=== PATIENT | male | born 1950 | race Caucasian/White ===

== ENCOUNTER → 2018-02-08 14:27 | Outpatient (CLI) | payer MEDICARE, MEDICAID ==
[2018-03-11 09:26] VITALS: BMI 27.4
== END | disposition home or self-care (01) ==
LOC: D.CT 14:27
DX: I65.23 Occlusion and stenosis of bilateral carotid arteries (principal)

== ENCOUNTER → 2018-02-23 14:23 | Outpatient (CLI) | payer MEDICARE, MEDICAID ==
[2018-03-11 09:26] VITALS: BMI 27.4
== END | disposition home or self-care (01) ==
LOC: D.CT 14:23
DX: R97.20 Elevated prostate specific antigen [PSA] (principal)

== ENCOUNTER 2018-03-11 07:33 | Outpatient (CLI) | payer MEDICARE, MEDICAID ==
[~2018-03-11] VITALS: Ht 170.2 cm; Wt 79.5 kg
--- NOTE | ~2018-03-11 | HEMODYNAMI ---
PATIENT:GABBY CHANEY MEDICAL RECORD: [id number] : 48 LOCATION:[facility] ADMISSION DATE: 03/11/18 Generatedon:03/11/201810:43 Patient name: GABBY CHANEY Patient #: [id number] SSN: B: 1950 Date of study: 03/11/2018 Page: Of Hemodynamic Procedure Report Patient Data Patient Demographics Procedure consent was obtained First Name: GABBY Gender: Male Last Name: RITU : 1950 Patient #: [id number] Age: 67 year(s) Race: Unknown Additional ID: [id number] Contact details [address]: [address] [place] [address] State: [place] City: [place] Zip code: [address] Past Medical History Allergies: No known allergies Admission Admission Data Admission Date: 03/11/2018 Admission Time: 7:33 Height (in.): 5.7 BSA: 0.32 (m2) Height (cm.): 14.48 BMI: 3786.93 (kg/m2) Weight (lbs.): 175 Weight (kg.): 79.38 Lab Results Lab Result Date: 03/11/2018 Lab Result Time: 0:00 Biochemistry Name Units Result Min Max BUN mg/dl 10 --(-*--)-- 7 18 Creatinine mg/dl 0.8 --(-*--)-- 0.6 1.3 CBC Name Units Result Min Max Hemoglobin g/dl 15.4 --(-*--)-- 13.5 17.5 Procedure Procedure Types Cath Procedure Diagnostic Procedure LHC LHC w/Coronaries Sedation Charges Moderate Sedation up to 30 minutes Peripheral Cath Diagnostic Procedure Cath Peripheral Four Vessel Arteriogram Procedure Description Procedure Date Procedure Date: 03/11/2018 Procedure Start Time: 10:12 Procedure End Time: 10:40 Procedure Staff Name Function Jef Vigil MD Performing Physician Brianne Nichole RT Scrub Nancy Ambrocio RT Monitor Jessi Haddad RN Nurse Procedure Data Cath Procedure Fluoroscopy Diagnostic fluoroscopy Total fluoroscopy Time: 7.4 time: 7.4 min min Diagnostic fluoroscopy Total fluoroscopy dose: 953 dose: 953 mGy mGy Contrast Material Contrast Material Type Amount (ml) Isovue 300 114 Entry Location Entry Primary Successful Side Size Upsize Upsize Entry Closure Succes sful Closure Location (Fr) 1 (Fr) 2 (Fr) Remarks Device Remarks Femoral Right 5 Fr Exoseal artery Estimated blood loss: 5 ml Diagnostic catheters Device Type Used For End Catheter Placement MULTIPACK JL 4.0 5Fr Procedure catheter MULTIPACK 3DRC 5Fr Procedure catheter MULTIPACK Pigtail 5 Fr Procedure catheter Procedure Complications No complications Procedure Medications Medication Administration Route Dosage Oxygen etCO2 Nasal cannula 2 l/min Lidocaine 2% added to field 20 Heparin Flush Bag added to field 2 bags (1000units/500ml NS) 0.9% NaCl I.V. 100 ml/hr Versed I.V. 1 mg Fentanyl I.V. 50 mcg Hemodynamics Rest BSA: 0.32 (m2) HGB: 15.4 (g/dl) O2 Consumption: Estimated: 34.62 (ml/min) O2 Con sumption indexed: Estimated:108.19 (ml/min/m) Heart Rate: 49 (bpm) Pressure Samples Time Site Value (mmHg) Purpose Heart Use Rate(bpm) 10:34 LV 148/-16,12 EDP 63 10:35 AO 141/71(100) Pullback 59 10:35 LV 138/7,15 Pullback 59 Gradients Valve Time Site 1 Site 2 Mean SEP/DFP Peak To Heart Use (mmHg) (sec/min) Peak Rate (mmHg) (bpm) Aortic 10:35 LV AO 0 14 0 59 138/7,15 141/71(100) Calculations Valve P-P Mean Valve Index Valve Source Name Gradient Area Flow (cm2) Aortic 0 0 0 0 Snapshots Pre Cath Intra NCS Post Cath Vital Signs Time Heart Resp SPO2 etCO2 NIBP (mmHg) Rhythm Pain Sedation Rate (ipm) (%) (mmHg) Status Level (bpm) 9:58:22 58 34 99 32.2 165/85(128) NSR 0 (11) 10(A) , No pain 10:02:40 60 16 99 18 153/83(100) NSR 0 (11) 10(A) , No pain 10:06:52 63 20 98 33 171/100(130) NSR 0 (11) 10(A) , No pain 10:11:12 64 18 99 0 165/94(130) NSR 0 (11) 10(A) , No pain 10:15:32 66 12 100 36.7 171/93(138) NSR 0 (11) 10(A) , No pain 10:19:50 67 13 99 36.7 160/87(111) NSR 0 (11) 10(A) , No pain 10:24:08 68 12 100 38.2 163/91(136) NSR 0 (11) 10(A) , No pain 10:28:27 67 13 98 34.4 159/91(125) NSR 0 (11) 10(A) , No pain 10:32:44 63 14 99 37.5 158/89(122) NSR 0 (11) 10(A) , No pain 10:37:05 62 17 99 35.9 155/81(119) NSR 0 (11) 10(A) , No pain Medications Time Medication Route Dose Verified Delivered Reason Notes Effe ctiveness by by 9:57:13 Oxygen etCO2 2 Jef Buffie used for Nasal l/min Musa Haddad RN procedure cannula 9:57:24 Lidocaine 2% added 20ml Jef Jef used for to vial Musa Vigil MD procedure field ABAD 9:57:36 Heparin Flush added 2 Jef Jef used for Bag to bags Musa Vigil MD procedure (1000units/500ml field ABAD NS) 9:57:45 0.9% NaCl I.V. 100 Jef Buffie Per ml/hr Musa Haddad RN physician 10:10:13 Versed I.V. 1 mg Jef Buffie for Musa Haddad RN sedation 10:10:19 Fentanyl I.V. 50 Jef Buffie for mcg Musa Haddad RN sedation Procedure Log Time Note 9:44:56 Time tracking: Regular hours (M-F 7:00 - 5:00) 9:44:58 Jessi Haddad RN sent for patient. Start room use. 9:45:02 Plan of Care:Hemodynamics will remain stable., Cardiac rhythm will remain stable., Comfort level will be maintained., Respiratory function will remain adequate., Patient/ family verbilizes understanding of procedure., Procedure tolerated without complication., Recovers from procedure without complications.. 9:45:03 Signed procedure consent form obtained from patient. 9:45:12 H&P Date Dictated: 03/04/2018 Within 30 days and on chart., H&P Addendum completed by physician on day of procedure. (MUST COMPLETE FOR ALL OUTPATIENTS). 9:45:20 Patient allergic to No known allergies 9:45:30 Patient Height : 5.7 inches 9:45:33 Patient Weight : 175 lbs 9:49:41 Patient received from Pre/Post Procedure Room to CCL 2 Alert and oriented. Tansferred to table in Supine position. 9:49:42 Warm blankets applied, and michelle hugger turned on for patient comfort. 9:49:42 Correct patient and procedure confirmed by team. 9:49:44 ECG and BP/O2 sat monitors applied to patient. 9:57:13 Oxygen 2 l/min etCO2 Nasal cannula was administered by Jessi Haddad RN; used for procedure; 9:57:14 Vital chart was started 9:57:24 Lidocaine 2% 20ml vial added to field was administered by Jef Vigil MD; used for procedure; 9:57:36 Heparin Flush Bag (1000units/500ml NS) 2 bags added to field was administered by Jef Vigil MD; used for procedure; 9:57:39 Baseline sample Acquired. 9:57:44 Rhythm: sinus rhythm 9:57:45 0.9% NaCl 100 ml/hr I.V. was administered by Jessi Haddad RN; Per physician; 9:57:45 Full Disclosure recording started 10:02:51 Pre-procedure instructions explained to patient. 10:02:51 Pre-op teaching completed and patient verbalized understanding. 10:02:53 Family in patients room. 10:02:54 Patient NPO since Midnight. 10:02:56 Is the patient allergic to Iodine/contrast media? No. 10:03:03 Is patient on blood thinner?Yes 10:03:06 ACC The patient was administered the following blood thiners within the last 24 hours: ACCPlavix 10:03:09 Patient diabetic? No. 10:03:11 Previous problem with sedation/anesthesia? No ? 10:03:14 Snore? No 10:03:15 Sleep apnea? No 10:03:16 Deviated septum? No 10:03:18 Opens mouth fully? Yes 10:03:19 Sticks out tongue? Yes 10:03:21 Airway obstruction? No ? 10:03:24 Dentures? No ? 10:03:27 Pre procedure: right dorsailis pedis pulse 2+ Normal; easily identifiable; not easily obliterated 10:03:33 IV patent on arrival in left hand with 0.9% NaCl at O. 10:04:26 Lab Result : Creatinine 0.8 mg/dl 10:04:26 Lab Result : BUN 10 mg/dl 10:04:26 Lab Result : Hemoglobin 15.4 g/dl 10:04:31 Lab results completed and on chart. 10:04:35 Right groin area was prepped with chlora-prep and draped in sterile fashion 10:04:39 Alarms reviewed by R. N. 10:04:39 Sharps counted by scrub and verified by R.N. 10:04:43 Use device set Femoral Dx 10:04:44 ACIST Syringe (52743) opened to sterile field. 10:04:45 Bag Decanter (2002S) opened to sterile field. 10:04:46 ACIST Hand Control (49225) opened to sterile field. 10:04:46 ACIST Manifold (00939) opened to sterile field. 10:04:47 Tegaderm 4 x 4 (1626W) opened to sterile field. 10:04:51 Medline Cath Pack ([id number]) opened to sterile field. 10:04:52 DIAGNOSTIC WIRE .035 260cm J wire (332335) opened to sterile field. 10:04:53 DIAGNOSTIC Multipack 5Fr catheter set ([id number]) opened to sterile field. 10:04:56 MICROPUNCTURE 4FR Cook (N93017) opened to sterile field. 10:04:58 SHEATH Prelude 5Fr 0.035 ([id number]-8Y-75-035) opened to sterile field. 10:08:27 --------ALL STOP TIME OUT------ 10:08:28 Final Timeout: patient, procedure, and site verified with staff and physician. All members of the team are in agreement. 10:08:32 Right groin site verified by team. 10:08:36 Physical assessment completed. ASA score P 2 - A patient with mild systemic disease as per Jef Vigil MD. 10:08:39 Sedation plan: IV Moderate Sedation Medication:Versed, Fentanyl 10:10:13 Versed 1 mg I.V. was administered by Jessi Haddad RN; for sedation; 10:10:19 Fentanyl 50 mcg I.V. was administered by Jessi Haddad RN; for sedation; 10:11:36 Zero performed for pressure channel P1 10:11:58 Procedure started. 10:12:28 Local anesthetic to right femoral artery with Lidocaine 2% by Jef Vigil MD.INITIAL ACCESS ONLY 10:14:02 Access obtained with 4Fr micropunture. 10:14:10 A 5 Fr sheath was inserted into the Right Femoral artery 10:14:32 A MULTIPACK JL 4.0 5Fr catheter was advanced over the wire and used for Procedure. 10:17:12 LCA angiography performed. 10:17:32 Catheter exchanged over wire. 10:17:56 A MULTIPACK 3DRC 5Fr catheter was advanced over the wire and used for Procedure. 10:19:41 RCA angiography performed. 10:21:44 Left carotid angiography performed. 10:25:26 Right carotid angiography performed. 10:32:58 Catheter exchanged over wire. 10:33:44 A MULTIPACK Pigtail 5 Fr catheter was advanced over the wire and used for Procedure. 10:34:20 LV gram done using LONGO 10:34:25 Injector settings: Ml/sec: 12, Volume: 8, 10:34:59 LV hemodynamics recorded. 10:35:35 EF : 60 % 10:35:37 Catheter removed. 10:35:39 EXOSEAL 5Fr (EX500) opened to sterile field. 10:35:59 Sheath removed intact; hemostasis achieved with Exoseal to the Right Femoral artery. 10:36:37 Procedure ended.(Physican Out) 10:37:02 Fluoroscopy time 07.40 minutes. 10:37:09 Fluoroscopy dose: 953 mGy 10:37:09 Flurop Dose total: 953 10:37:26 Contrast amount:Isovue 300 114ml. 10:37:28 Sharps counted by scrub and verified by R.N. 10:37:32 Post-op/insertion site Right Femoral artery dressed using a 4 x 4 and Tegaderm. 10:37:45 Post right femoral artery:stable, soft, clean and dry 10:37:48 Post-procedure physical assessment completed. ASA score P 2 - A patient with mild systemic disease as per Jef Vigil MD. 10:37:58 Post procedure rhythm: sinus rhythm 10:38:01 Estimated blood loss: 5 ml 10:38:02 Post procedure instruction explained to patient.Patient verbalizes understanding. 10:38:04 Patient needs reinforcement of post procedure teaching. 10:38:37 Procedure type changed to Cath procedure, Diagnostic procedure, LHC, LHC w/Coronaries, Sedation Charges, Moderate Sedation up to 30 minutes, Peripheral Cath Diagnostic Procedure, Cath Peripheral, Four Vessel Arteriogram 10:39:59 Procedure and supply charges have been captured, reviewed, submitted and are correct. 10:40:02 Procedure Complication : No complications 10:40:05 Vital chart was stopped 10:40:05 See physician's report for complete and final results. 10:40:07 Report given to Pre/Post Procedure Room. 10:40:09 Patient transfered to Pre/Post Procedure Room with Bed. 10:40:10 Procedure ended. 10:40:10 Full Disclosure recording stopped 10:40:14 End room use (Document Last) Device Usage Item Name Manufacture Quantity Catalog Number Hospital Part Current M inimal Lot# / Charge Number Stock Stock Serial# Code ACIST Syringe Acist 1 26267 [id number] 860962 782718 2 0 (90424) [employer] Bag Decanter Microtek 1 2001S 407809 34872 712233 5 (2001S) Medical Inc. ACIST Hand Acist 1 91549 131767 721716 379473 5 Control (58563) [employer] Inc ACIST Manifold Acist 1 22738 571676 003823 227077 5 (45177) Medical Systems Inc Tegaderm 4 x 4 3M 1 1626W 134934 018171 259022 5 (1626W) Medline Cath Cardinal 1 [id number] 626906 89968 687207 5 Pack Health ([id number]) DIAGNOSTIC WIRE [facility] 1 838069 230359 389332 562758 3 0 .035 260cm J wire (614551) DIAGNOSTIC Cardinal 1 IV2486 658067 43342 729317 3 0 Multipack 5Fr Health catheter set ([id number]) MICROPUNCTURE Omnisio Medical 1 D27695 329741 687666 763290 5 4FR Omnisio ([id number]) SHEATH Prelude Merit 1 [id number]-2B-27-035 878442 724824 565177 5 5Fr 0.035 Medical ([id number]) MULTIPACK JL Cardinal 1 [id number] 5 4.0 5Fr Health catheter MULTIPACK 3DRC Cardinal 1 677048 5 5Fr catheter Health MULTIPACK Cardinal 1 386515 5 Pigtail 5 Fr Health catheter EXOSEAL 5Fr Cardinal 1 EX500 878851 111129 404552 1 0 (EX500) Health Signature Audit [place] Stage Time Signature Unsigned Intra-Procedure 03/11/2018 Nancy Ambrocio 10:43:11 AM RT(R) Signatures Monitor : Nancy Ambrocio Signature : RT Date : Time : [address] [address]
--- NOTE | ~2018-03-11 | OP ---
PATIENT NAME: GABBY CHANEY MEDICAL RECORD: [id number] :48 LOCATION:D.[facility] ADMISSION DATE: SURGEON: JEF RUIZ MD DATE OF OPERATION: 03/11/2018 PROCEDURE: Left heart catheterization, 4-vessel angiography. WAFER FABRICATION TECHNICIAN: Jef Ruiz MD DESCRIPTION OF PROCEDURE: The patient was brought in cardiac catheterization lab in stable condition. Both groins were sterilely prepped and draped. The patient had a 5-Guamanian sheath placed in the right common femoral artery in a retrograde fashion using modified Seldinger technique. We then utilized 5-Guamanian diagnostic catheters to selectively intubate the left main coronary artery, the right coronary artery, the left ventricular cavity, the innominate artery, the right subclavian vessel, the right common carotid artery, the left common carotid artery, and the left subclavian artery, angiography was performed in multiple projections. FINDINGS: 1. Left main has mild plaquing. 2. The LAD is a smallish caliber vessel with diffuse atherosclerotic changes. No significant hemodynamic stenoses. 3. The circumflex is a nondominant vessel giving rise to terminal obtuse marginal branch, which shows mild atherosclerotic changes, 40% stenosis in the ostial segment. 4. The RCA is shown to be a dominant vessel in distribution, has mild diffuse calcific changes with a 40% to 50% mid stenosis. 5. The left common carotid artery is normal. 6. The left internal carotid artery is 100% occluded. 7. The left external iliac artery is normal. 8. The left subclavian has a 40% ostial stenosis. 9. The left vertebral has antegrade flow without significant stenosis. 10. The intracerebral portion was shown to have crossover left to right in the anterior distribution via the left vertebral artery. 11. The right subclavian vessel is tortuous with no hemodynamically significant stenosis. 12. The right vertebral artery is patent with antegrade flow. 13. The right common carotid artery is widely patent as well as the right external and right internal carotid artery. 14. The patient had extensive crossover from the anterior distribution from the right common carotid artery and the lateral projection was shown to have good convergence flow, good anterior cerebral artery and middle cerebral artery flow bilaterally from the right common carotid artery. HEMODYNAMICS: Left ventricular ejection fraction is 60%. End-diastolic pressure is normal. There is no significant mitral regurgitation. There is no gradient across the aortic valve. IMPRESSION: 1. Mild coronary artery disease. 2. Preserved LV systolic function. 3. Severe stenosis of the left internal carotid artery with collateralization via multiple sources into the anterior circulation. OPERATIVE REPORT [id number] GABBY CHANEY TRANSINT:[id number] Voice Confirmation ID: [id number] DOCUMENT ID: [id number] JEF RUIZ MD at 1011 CC: [id number] DICTATION DATE: 03/11/18 1043 HISTORIOGRAPHY PROFESSOR: 03/11/18 1103 DEP CLI 03/11/18 [facility] [address] [place] [address]
[2018-03-11 09:26] VITALS: BP 120/81; Ht 170.2 cm; Wt 79.5 kg
[2018-03-11 09:43] LABS: CHOL - HDL RATIO 3.9 ratio (2.3-4.9); LDL-HDL RATIO 2.5 ratio (1.5-3.5)
[2018-03-11 09:46] LABS: CALC OSMOLALITY 277 mosm/kg (275-300); CALCIUM 9.3 mg/dL (8.5-10.1); CARBON DIOXIDE 29.3 mmol/L (21.0-32.0); CHLORIDE - SERUM 105 mmol/L (98-107); CREATININE - SERUM 0.8 mg/dL (0.6-1.3); GLUCOSE 110 mg/dL (74-106); POTASSIUM - SERUM 4.6 mmol/L (3.5-5.1); SODIUM 139 mmol/L (136-145); UREA NITROGEN 10 mg/dL (7-18); eGFR NON AFRICAN AMERICAN > 90 mL/min (90-120)
[2018-03-11 10:00] LABS: BASOPHILS 0.2 % (0-2); EOSINOPHILS 2.8 % (0-7); HEMATOCRIT 44.1 % (42.0-54.0); HEMOGLOBIN 15.4 g/dL (13.5-17.5); IMMATURE GRANULOCYTES 0.2 % (0-5); LYMPHOCYTES 20.5 % (15-50); MCH 30.9 pg (26.0-34.0); MCHC 34.9 g/dL (31.0-37.0); MCV 88.6 fL (80.0-100.0); MEAN PLATELET VOLUME 9.9 fL (7.4-10.4); MONOCYTES 10.1 % (2-11); NEUTROPHILS 66.2 % (40-80); PLATELET COUNT 183 10x3/uL (130-400); RBC 4.98 10x6/uL (4.20-6.10); RDW 13.2 % (11.5-14.5); WBC 9.3 10x3/uL (4.8-10.8)
== END 2018-03-11 13:25 | disposition home or self-care (01) ==
LOC: D.CATH 07:33
PROVIDERS: Internal Medicine Cardiovascular Disease
DX: I25.119 Atherosclerotic heart disease of native coronary artery with unspecified angina pectoris (principal); I65.22 Occlusion and stenosis of left carotid artery; I70.8 Atherosclerosis of other arteries; Z01.812 Encounter for preprocedural laboratory examination

== ENCOUNTER → 2018-04-15 13:06 | Outpatient (CLI) | payer MEDICARE ==
[2018-03-11 09:26] VITALS: BMI 27.4
== END | disposition home or self-care (01) ==
LOC: D.MRI 13:06
DX: M25.511 Pain in right shoulder (principal)

== ENCOUNTER → 2018-05-10 18:03 | Outpatient (CLI) | payer MEDICARE ==
[2018-03-11 09:26] VITALS: BMI 27.4
[2018-05-10 19:25] LABS: CHOL - HDL RATIO 6.4 ratio (2.3-4.9); LDL-HDL RATIO 4.5 ratio (1.5-3.5)
== END | disposition home or self-care (01) ==
LOC: D.LABREF 18:03
PROVIDERS: Internal Medicine Cardiovascular Disease
DX: E78.5 Hyperlipidemia, unspecified (principal)

== ENCOUNTER 2018-08-12 05:35 | Day surgery (SDC) | payer MEDICARE ==
[2018-08-11 15:33] LABS: HEMATOCRIT 42.6 % (42.0-54.0); HEMOGLOBIN 14.9 g/dL (13.5-17.5); MCH 30.2 pg (26.0-34.0); MCV 86.4 fL (80.0-100.0); MEAN PLATELET VOLUME 10.4 fL (7.4-10.4); RBC 4.93 10x6/uL (4.20-6.10); RDW 12.7 % (11.5-14.5); WBC 9.7 10x3/uL (4.8-10.8)
[2018-08-11 15:42] LABS: CALC OSMOLALITY 276 mosm/kg (275-300); CALCIUM 9.4 mg/dL (8.5-10.1); CARBON DIOXIDE 24.1 mmol/L (21.0-32.0); CHLORIDE - SERUM 102 mmol/L (98-107); GLUCOSE 101 mg/dL (74-106); POTASSIUM - SERUM 4.1 mmol/L (3.5-5.1); SODIUM 139 mmol/L (136-145); UREA NITROGEN 9 mg/dL (7-18); eGFR NON AFRICAN AMERICAN 79 mL/min (90-120)
[2018-08-11 15:53] LABS: APTT 30.9 SECONDS (22.8-39.4); INR 1.04 (0.85-1.17); PROTIME 13.1 SECONDS (11.6-15.0)
[~2018-08-12] VITALS: Ht 167.6 cm; Wt 82.7 kg
[~2018-08-12 05:35] MED LIST: ASPIRIN325 MG; CRESTOR5 MG; FLOMAX0.4 MG; PLAVIX75 MG
[2018-08-12 07:06] VITALS: Ht 167.6 cm; Wt 82.7 kg
--- NOTE | 2018-08-12 09:20 | NUR ---
REC'D FROM SURGERY. NO FAMILY. PT LIVES ALONE. DR WALDROP SPOKE WITH PT. DR WALDROP CONFIRMED IT IS OK TO DC HIM HOME [facility] DOES NOT HAVE ANYONE TO CARE FOR HIM. RACHEL GALLARDO SERVED.
--- NOTE | 2018-08-12 09:50 | NUR ---
TOLERATED FL TRAY. AMBULATED TO BATHROOM. VOIDED WITHOUT DIFFICULTY. BLOOD IN URINE.
--- NOTE | 2018-08-12 10:01 | NUR ---
WRITTEN AND VERBAL DC INST. GIVEN TO PT. VERBALIZED UNDERSTANDING. [facility] CALLED FOR PT TRANSPORT. RELATES WILL BE 15-20 MINUTES.
--- NOTE | 2018-08-12 10:30 | NUR ---
DC'D HOME VIA [facility]. TAKEN TO [facility] VIA WC. STABLE AT TIME OF DC.
--- NOTE | 2018-08-12 11:14 | OP ---
PATIENT NAME: GABBY CHANEY MEDICAL RECORD: [id number] :48 LOCATION:D.OPS ADMISSION DATE: SURGEON: KOLTON WALDROP MD DATE OF OPERATION: 08/12/2018 SURGEON: Kolton Waldrop MD ANESTHESIA: TIVA by Harry Kapadia CRNA DIAGNOSIS: Elevated PSA of 143.0 on 06/16/2018, bladder outlet obstruction. PROCEDURE: Cystoscopy, transrectal ultrasound, and prostate biopsy. FINDINGS: On cystoscopy, bilateral lateral lobe hyperplasia with a tall median lobe. Single ureteral orifices bilaterally with no bladder tumors. Heavily trabeculated bladder with diverticula and cellules. On transrectal ultrasound, he had 32 gram prostate with some peripheral zone hypoechoic areas and intraprostatic stones. SPECIMENS: Prostate biopsy cores. BLOOD LOSS: None. CLINICAL HISTORY: This is a 67-year-old male, who was referred with an elevated PSA. His PSA was 138.52 on 01/26/2018. He was scheduled to have a prostate biopsy last year, but he canceled this as he had other physician visits that he needed to get to at that time. He had the PSA repeated on 06/16/2018 and this had risen to 143. He comes today to have cystoscopy and transrectal ultrasound of the prostate with prostate biopsy. He has had issues with hematuria and urinary tract infections. He is on Plavix after he has had a stroke. His professor of physical education said it was okay to hold his Plavix for this procedure. HE IS ALLERGIC TO ASPIRIN. He was given Ancef liaison planner to the OR. DESCRIPTION OF PROCEDURE: The patient was given IV sedation. He was then placed into dorsal lithotomy position and prepped and draped. A 17-Albanian cystoscope was used for visualization. A 30-degree lens was used. No urethral strictures were seen. The prostate is obstructive especially at the bladder neck level. Single ureteral orifices were seen and no bladder tumors were seen. The bladder was then emptied through the scope sheath and the scope was removed. The transrectal ultrasound probe was then introduced. Prostate size measurements were obtained and we obtained a size of 32 grams. There were hypoechoic areas within the posterior peripheral zone and intraprostatic stones were also seen. Sextant biopsies were obtained with at least 3 cores from each sextant. Once the specimens were all obtained, the procedure was terminated. The patient will be going home today. I will see him in followup next week to review the pathology results with him. TRANSINT:[id number] Voice Confirmation ID: [id number] DOCUMENT ID: [id number] OPERATIVE REPORT [id number] GABBY CHANEY ROBERT S MD at 1114 CC: [id number] DICTATION DATE: 08/12/18925 REPATCHER: 08/12/18 1113 [facility] 08/12/[address] [address]
== END 2018-08-12 10:30 | disposition home or self-care (01) ==
LOC: D.OPS 05:35 → D.PAN 08:00 → D.OPS 08:00 → D.PAN 09:00 → D.OPS 09:00 → D.PAN 09:15 → D.OPS 09:15
PROVIDERS: Anesthesiology
DX: N40.1 Benign prostatic hyperplasia with lower urinary tract symptoms (principal); C61 Malignant neoplasm of prostate; N13.8 Other obstructive and reflux uropathy; N32.89 Other specified disorders of bladder; N32.3 Diverticulum of bladder; Z87.440 Personal history of urinary (tract) infections; Z86.73 Personal history of transient ischemic attack (TIA), and cerebral infarction without residual deficits; Z79.02 Long term (current) use of antithrombotics/antiplatelets; Z88.6 Allergy status to analgesic agent

== ENCOUNTER 2018-08-12 17:02 | Emergency (ER) | payer MEDICARE ==
[~2018-08-12] VITALS: Ht 167.6 cm; Wt 81.8 kg
[2018-08-12 17:03] VITALS: BP 125/95; Ht 167.6 cm; Wt 81.8 kg
== END 2018-08-12 19:35 | disposition home or self-care (01) ==
LOC: D.ER 17:02
DX: R33.9 Retention of urine, unspecified (principal); Z86.73 Personal history of transient ischemic attack (TIA), and cerebral infarction without residual deficits; I25.10 Atherosclerotic heart disease of native coronary artery without angina pectoris

== ENCOUNTER → 2018-08-17 13:56 | Outpatient (CLI) | payer MEDICARE ==
[2018-08-12 17:03] VITALS: BMI 29.1
== END | disposition home or self-care (01) ==
LOC: D.US 13:56
DX: I65.23 Occlusion and stenosis of bilateral carotid arteries (principal); I63.9 Cerebral infarction, unspecified

== ENCOUNTER → 2018-08-20 09:50 | Outpatient (CLI) | payer MEDICARE ==
[2018-08-12 17:03] VITALS: BMI 29.1
== END | disposition home or self-care (01) ==
LOC: D.NM 09:50
DX: C61 Malignant neoplasm of prostate (principal)

== ENCOUNTER 2018-08-26 07:00 | Day surgery (SDC) | payer MEDICARE ==
[2018-08-20 11:42] LABS: BASOPHILS 0.6 % (0-2); EOSINOPHILS 1.5 % (0-7); HEMATOCRIT 44.6 % (42.0-54.0); HEMOGLOBIN 15.2 g/dL (13.5-17.5); IMMATURE GRANULOCYTES 0.2 % (0-5); LYMPHOCYTES 19.7 % (15-50); MCHC 34.1 g/dL (31.0-37.0); MCV 88.1 fL (80.0-100.0); MEAN PLATELET VOLUME 9.8 fL (7.4-10.4); MONOCYTES 7.6 % (2-11); NEUTROPHILS 70.4 % (40-80); PLATELET COUNT 216 10x3/uL (130-400); RBC 5.06 10x6/uL (4.20-6.10); RDW 12.8 % (11.5-14.5); WBC 8.8 10x3/uL (4.8-10.8)
[2018-08-20 11:48] LABS: APTT 29.1 SECONDS (22.8-39.4); INR 0.96 (0.85-1.17); PROTIME 12.3 SECONDS (11.6-15.0)
[2018-08-20 11:49] LABS: CALC OSMOLALITY 275 mosm/kg (275-300); CALCIUM 9.4 mg/dL (8.5-10.1); CARBON DIOXIDE 26.7 mmol/L (21.0-32.0); CHLORIDE - SERUM 102 mmol/L (98-107); CREATININE - SERUM 0.9 mg/dL (0.6-1.3); GLUCOSE 107 mg/dL (74-106); POTASSIUM - SERUM 4.3 mmol/L (3.5-5.1); SODIUM 139 mmol/L (136-145); UREA NITROGEN 7 mg/dL (7-18); eGFR NON AFRICAN AMERICAN 89 mL/min (90-120)
[~2018-08-26] VITALS: Ht 167.6 cm; Wt 81.8 kg
[2018-08-26 08:34] VITALS: BP 141/75; BMI 29.4
[2018-08-26 19:17] VITALS: Ht 167.6 cm; Wt 81.8 kg
--- NOTE | 2018-08-27 11:00 | MORECARE ---
CASE MANAGEMENT DISCHARGE SUMMARY PATIENT: GABBY CHANEY UNIT: [id number] ADM DATE: 08/26/18 AGE: 67 : 49 SEX: M ROOM/BED: D.2212 AUTHOR: NOEMY BRUNO PHYSICIAN: REFERRING PHYSICIAN: DHARA KO MD DATE OF SERVICE: 08/27/18 Discharge Plan Patient Name: GABBY CHANEY [facility] [facility] 1950 Planned Disposition: Anticipated Discharge Date: Discharge Date: Expected LOS: 0 Initial Reviewer: [email or web address] Initial Review Date: 08/27/2018 Generated: 08/27/18 12:00 pm Comments DCP- Discharge Planning Updated by [email or web address]: Keyla Dna on 08/27/18 10:[address] Patient Name: GABBY CHANEY Admission Status: Elective Accout number: [id number] Admission Date: 08-26-2018 : 1950 Admission Diagnosis: Attending: DHARA KO Current LOS: 1 Anticipated DC Date: Planned Disposition: Primary Insurance: MEDICARE A & B Discharge Planning Comments: CM was asked to see patient and set up with home health. Patient lives home alone and walked to the hospital for surgery. CM will set up a taxi to get him home. SANGEETA with [facility] and [facility] pt signed. I sent referral to [facility]. He also has area on aging that helps him. He feels safe to return home today. CM will continue to assist with DC planning. Patient did say he had already got his pain medicine before surgery. Spoke with Daisy at [facility] and they will accept patient Inside Sales Person: Keyla Dan External [facility]iders [facility] Next Contact Date: Service Request Date: Service Type: Resolution: Reviewer: Comments: Patient Name: GABBY CHANEY Page 58515 at 1100 All edits/amendments must be made on the electronic document DICTATION DATE: 08/27/18 1100 DIRECTOR INBOUND SALES: BRENDA 08/27/18 1100 RPT#: [id number] DC DATE: STATUS: REG [facility] [address] [place] [address] END OF REPORT
--- NOTE | 2018-08-27 11:16 | MORECARE ---
CASE MANAGEMENT DISCHARGE SUMMARY PATIENT: GABBY CHANEY UNIT: [id number] ADM DATE: 08/26/18 AGE: 67 : 49 SEX: M ROOM/BED: D.2212 AUTHOR: NOEMY BRUNO PHYSICIAN: REFERRING PHYSICIAN: DHARA KO MD DATE OF SERVICE: 08/27/18 Discharge Plan Patient Name: GABBY CHANEY [facility] : 1950 Planned Disposition: Anticipated Discharge Date: Discharge Date: Expected LOS: 0 Initial Reviewer: [email or web address] Initial Review Date: 08/27/2018 Generated: 08/27/18 12:16 pm Comments DCP- Discharge Planning Updated by [email or web address]: Keyla Dan on 08/27/18 10:[address] taxi will be provided for patient the reyna was quoted $8.75. CM will pay for this DCP- Discharge Planning Updated by [email or web address]: Keyla Dan on 08/27/18 10:[address] Patient Name: GABBY CHANEY Admission Status: Elective Accout number: [id number] Admission Date: 08-26-2018 : 1950 Admission Diagnosis: Attending: DHARA KO Current LOS: 1 Anticipated DC Date: Planned Disposition: Primary Insurance: MEDICARE A & B Discharge Planning Comments: CM was asked to see patient and set up with home health. Patient lives home alone and walked to the hospital for surgery. CM will set up a taxi to get him home. SANGEETA with [facility] and [facility] pt signed. I sent referral to [facility]. He also has area on aging that helps him. He feels safe to return home today. CM will continue to assist with DC planning. Patient did say he had already got his pain medicine before surgery. Spoke with Daisy at [facility] and they will accept patient Solution Director: Keyla Dan Last DP export: 08/27/18 10:00 am Patient Name: GABBY CHANEY Page [phone] at 1116 All edits/amendments must be made on the electronic document DICTATION DATE: 02/01/19 1116 WEB DESIGNER DEVELOPER: BRENDA 08/27/181115 RPT#: [id number] DC DATE: STATUS: REG [facility] [address] [place] [address] END OF REPORT
== END 2018-08-27 14:16 | disposition home or self-care (01) ==
LOC: D.OPS 07:00 → D.PAN 07:30 → D.OPS 09:30 → D.MS 18:19 → D.OPS 08-27 14:16
PROVIDERS: Anesthesiology; Orthopaedic Surgery
DX: M75.41 Impingement syndrome of right shoulder (principal); M75.101 Unspecified rotator cuff tear or rupture of right shoulder, not specified as traumatic; S43.491A Other sprain of right shoulder joint, initial encounter; X58.XXXA Exposure to other specified factors, initial encounter; M19.011 Primary osteoarthritis, right shoulder; M65.811 Other synovitis and tenosynovitis, right shoulder

== ENCOUNTER 2018-10-26 18:11 | Emergency (ER) | payer MEDICARE ==
[~2018-10-26] VITALS: Ht 167.6 cm; Wt 81.6 kg
[2018-10-26 18:27] VITALS: Ht 167.6 cm; Wt 81.6 kg
[2018-10-26] MEDS ORDERED: ROBAXIN500 MG PO (21:42)
[2018-10-26 21:49] VITALS: BP 152/76
== END 2018-10-26 21:50 | disposition home or self-care (01) ==
LOC: D.ER 18:11
DX: M25.511 Pain in right shoulder (principal)

== ENCOUNTER → 2018-10-27 15:56 | Outpatient (CLI) | payer MEDICARE ==
[2018-10-26 18:27] VITALS: BMI 29.1
[~2018-10-27 15:56] MED LIST changes: +ROBAXIN500 MG PO
== END | disposition home or self-care (01) ==
LOC: D.US 10-26 15:30
PROVIDERS: ATTEND Orthopaedic Surgery
DX: R60.0 Localized edema (principal)

== ENCOUNTER → 2018-12-08 12:44 | Outpatient (CLI) | payer MEDICARE ==
[2018-10-26 18:27] VITALS: BMI 29.1
== END | disposition home or self-care (01) ==
LOC: D.MRI 12:44
PROVIDERS: ATTEND Orthopaedic Surgery
DX: M25.511 Pain in right shoulder (principal)

== ENCOUNTER → 2020-04-04 10:24 | Outpatient (CLI) | payer MEDICARE ==
[2018-10-26 18:27] VITALS: BMI 29.1
== END | disposition home or self-care (01) ==
LOC: D.NM 10:24
PROVIDERS: ATTEND Internal Medicine Hematology & Oncology
DX: C79.51 Secondary malignant neoplasm of bone (principal); C61 Malignant neoplasm of prostate